=== PATIENT | female | born 1965 | race Caucasian/White ===

== ENCOUNTER → 2016-11-21 | Outpatient (CLI) | payer OTHER ==
[~2016-11-21] MED LIST: FLEXERIL10 MG PO; IBUPROFEN600 MG PO; NEXIUM20 MG PO; PAXIL10 MG PO; PAXIL20 MG PO; PREMARIN0.625 MG PO; PREVACID30 MG PO; PRILOSEC40 MG PO; TESSALON200 MG PO; [UNRECOGNIZED DRUG - REMARK]
== END | disposition home or self-care (01) ==
LOC: RAD 11-20 14:00
PROC: 3E0U33Z Introduction of Anti-inflammatory into Joints, Percutaneous Approach (ICD-10-PCS; principal; 2016-11-21)
PROC: 3E0U3NZ Introduction of Analgesics, Hypnotics, Sedatives into Joints, Percutaneous Approach (ICD-10-PCS; principal; 2016-11-21)
PROC: BR1D1ZZ Fluoroscopy of Sacroiliac Joints using Low Osmolar Contrast (ICD-10-PCS; principal; 2016-11-21)
DX: M46.1 Sacroiliitis, not elsewhere classified (principal); M70.61 Trochanteric bursitis, right hip
CPT/HCPCS: 77002; J1030

== ENCOUNTER → 2017-07-24 | Outpatient (CLI) | payer OTHER ==
[~2017-07-24] MED LIST changes: +COZAAR25 MG PO; +CYMBALTA60 MG PO; +VENTOLIN HFA18 GM IH
== END | disposition home or self-care (01) ==
LOC: CDC 10:27
DX: Z01.810 Encounter for preprocedural cardiovascular examination (principal); G47.33 Obstructive sleep apnea (adult) (pediatric); I10 Essential (primary) hypertension; R94.31 Abnormal electrocardiogram [ECG] [EKG]
CPT/HCPCS: 93000

== ENCOUNTER 2017-07-31 05:21 | Day surgery (SDC) | payer OTHER ==
[~2017-07-31] VITALS: Ht 162.6 cm; Wt 75.7 kg
[2017-07-31 06:05] VITALS: BP 168/85
[2017-07-31 09:19] VITALS: BP 157/86
[2017-07-31 09:53] VITALS: BP 143/81
== END 2017-07-31 10:10 | disposition home or self-care (01) ==
LOC: SDC
PROC: 01N50ZZ Release Median Nerve, Open Approach (ICD-10-PCS; principal; 2017-07-31)
DX: G56.01 Carpal tunnel syndrome, right upper limb (principal); G47.30 Sleep apnea, unspecified; K75.9 Inflammatory liver disease, unspecified; J45.909 Unspecified asthma, uncomplicated; Z84.89 Family history of other specified conditions; Z82.3 Family history of stroke; Z82.49 Family history of ischemic heart disease and other diseases of the circulatory system; Z83.3 Family history of diabetes mellitus; Z88.2 Allergy status to sulfonamides
CPT/HCPCS: J0690; J2250; Q0175; S0020